=== PATIENT | male | born 1990 | race Caucasian/White ===

== ENCOUNTER 2020-02-17 16:14 | Emergency (ER) | payer SELFPAY ==
--- NOTE | 2020-02-17 16:52 | EDM.PDOC ---
ED HPI GENERAL MEDICAL PROBLEM - General Chief Complaint: General Stated Complaint: RIGHT WRIST PAIN Time Seen by Provider: 02/17/20 16:30 Source of Information: Reports: Patient History Limitations: Reports: No Limitations - History of Present Illness INITIAL COMMENTS - FREE TEXT/NARRATIVE: Patient presents emergency department with right elbow and wrist pain, he states upon awakening this morning the pain started in his right elbow, later this afternoon it moved into his right wrist. Pain worsens with range of motion inversion and eversion of his hand and wrist, making a fist, and palpation of his lateral epicondyle and lateral wrist. Patient denies any fever, chills, recent injury. Patient denies any medical history. Recent activities were thoroughly cleaning his house yesterday, this is not a usual activity for patient. Onset: Today Right Wrist Pain Score (Numeric/FACES): 4 - Related Data Allergies Allergy/AdvReac Type Severity Reaction Status Date / Time No Known Allergies Allergy Verified 05/15/14 11:43 Home Meds: Home Meds NK [No Known Home Meds] 05/15/14 [History] ED ROS GENERAL - Review of Systems Review Of Systems: Comprehensive ROS is negative, except as noted in HPI. ED EXAM, GENERAL - Physical Exam Exam: See Below Exam Limited By: No Limitations General Appearance: Alert, WD/WN, No Apparent Distress Respiratory/Chest: No Respiratory Distress, Normal Breath Sounds Cardiovascular: Normal Peripheral Pulses, Regular Rate, Rhythm Peripheral Pulses: 2+: Radial (L), Radial (R) Extremities: Other (Tender lateral wrist and tender lateral epicondyle on right upper extremity. Pain with range of motion of right wrist and inversion and eversion of hand. This pain is almost completely relieved with application of pressure to the lateral epicondyle.) Neurological: Alert, Oriented, CN II-XII Intact, Normal Cognition Psychiatric: Normal Affect, Normal Mood Skin Exam: Warm, Dry, Intact Course - Vital Signs Last Recorded V/S: Last Vital Signs Temp 96.4 F L 02/17/20 16:31 Pulse 101 H 02/17/20 16:31 Resp 18 02/17/20 16:31 BP 129/95 H 02/17/20 16:31 Pulse Ox 98 02/17/20 16:31 Departure - Departure Time of Disposition: 16:50 Disposition: Home, Self-Care 01 Clinical Impression: Tennis elbow - Discharge Information *PRESCRIPTION DRUG MONITORING PROGRAM REVIEWED*: Not Applicable *COPY OF PRESCRIPTION DRUG MONITORING REPORT IN PATIENT PAMELA: Not Applicable Instructions: Tennis Elbow, [id number] Referrals: PCP,None [Primary Care Provider] - Forms: ED Department Discharge Additional Instructions: Discharge home. Tylenol and Ibuprofen for pain, rest the arm and wrist. Keep pressure to tendons and ligaments at the elbow for a couple days to help reduce inflammation to arm/wrist. Try to use left hand when working. Sepsis Event Note (ED) - Evaluation Sepsis Screening Result: No Definite Risk - Focused Exam Vital Signs: Vital Signs Temp Pulse Resp BP Pulse Ox 02/17/20 16:31 96.4 F L 101 H 18 129/95 H 98 02/17/20 16:22 96.4 F L 101 H 18 129/95 H 98 - Problem List & Annotations (1) Tennis elbow SNOMED Code(s): 525868362 Code(s): M77.10 - LATERAL EPICONDYLITIS, UNSPECIFIED ELBOW Status: Acute Current Visit: Yes Qualifiers: Laterality: right Qualified Code(s): M77.11 - Lateral epicondylitis, right elbow - Problem List Review Problem List Initiated/Reviewed/Updated: Yes - Assessment/Plan Assessment:: Assessment: Tennis elbow Plan: Tylenol and ibuprofen OTC Apply pressure to lateral epicondyle with pressure bandage like an Zeb wrap with activities to prevent discomfort Rest right elbow as often as possible, apply ice and elevation as needed. Differentials considered were golfers elbow, bursitis, tennis elbow.
== END 2020-02-17 16:45 | disposition home or self-care (01) ==
LOC: LB.ED 16:14
DX: M77.11 Lateral epicondylitis, right elbow (principal)
CPT/HCPCS: 99282; 99283

== ENCOUNTER 2020-03-25 09:18 | Emergency (ER) | payer SELFPAY ==
[~2020-03-25 09:18] MED LIST: Aspirin 81 MG Tab.Chew PO ONE; Nitroglycerin 0.4 MG Tab.SL SL ONE
[2020-03-25] MEDS ORDERED: Ketorolac 30 MG/ML SDV IVPUSH PRN (09:51)
[2020-03-25] MEDS ORDERED: Ketorolac 30 MG/ML SDV ONE (10:02)
--- NOTE | 2020-03-25 10:22 | EDM.PDOC ---
ED HPI GENERAL MEDICAL PROBLEM - General Chief Complaint: Chest Pain Stated Complaint: chest pain Time Seen by Provider: 03/25/20 10:32 Source of Information: Reports: Patient History Limitations: Reports: No Limitations - History of Present Illness Onset: Today Duration: Hour(s): (sharp stabbing left sided chest pain, started ), Constant, Getting Worse Location: Reports: Chest Quality: Reports: Sharp, Stabbing Severity: Moderate Improves with: Reports: Rest Worsens with: Reports: Movement Context: Reports: Activity Associated Symptoms: Reports: No Other Symptoms. Denies: Cough, Diaphoresis Left Chest Pain Score (Numeric/FACES): 10 - Related Data Allergies Allergy/AdvReac Type Severity Reaction Status Date / Time No Known Allergies Allergy Verified 05/15/14 11:43 Home Meds: Home Meds NK [No Known Home Meds] 05/15/14 [History] Past Medical History - Past Health History Medical/Surgical History: Denies Medical/Surgical History Social & Family History - Family History Family Medical History: Noncontributory ED ROS GENERAL - Review of Systems Review Of Systems: See Below Constitutional: Reports: No Symptoms. Denies: Fever, Chills, Malaise, Weakness HEENT: Reports: No Symptoms Respiratory: Reports: Pleuritic Chest Pain. Denies: Shortness of Breath, Wheezing, Cough Cardiovascular: Reports: Chest Pain. Denies: Dyspnea on Exertion, Lightheadedness Endocrine: Reports: No Symptoms GI/Abdominal: Reports: No Symptoms : Reports: No Symptoms Musculoskeletal: Reports: Muscle Pain Skin: Reports: No Symptoms Neurological: Reports: No Symptoms Psychiatric: Reports: No Symptoms ED EXAM, GENERAL - Physical Exam Exam: See Below Free Text/Narrative:: Sharp stabbing reproducible chest wall pain Exam Limited By: No Limitations General Appearance: Alert, WD/WN, Anxious, Mild Distress Ears: Normal External Exam Nose: Normal Inspection Throat/Mouth: Normal Inspection Head: Atraumatic, Normocephalic Neck: Normal Inspection, Supple, Non-Tender, Full Range of Motion Respiratory/Chest: No Respiratory Distress, Lungs Clear, Normal Breath Sounds, No Accessory Muscle Use, Other (Left side lower rib tenderness lateral ribs). No: Respiratory Distress, Crackles, Rales, Rhonchi, Wheezing, Retractions, Splinting Cardiovascular: Normal Peripheral Pulses GI/Abdominal: Normal Bowel Sounds Back Exam: Normal Inspection, Full Range of Motion Extremities: Normal Inspection, Normal Range of Motion Course - Vital Signs Last Recorded V/S: Last Vital Signs Temp 98.3 F 03/25/20 09:29 Pulse 90 03/25/20 09:29 Resp 20 03/25/20 09:29 BP 130/90 03/25/20 09:29 Pulse Ox 98 03/25/20 09:29 - Orders/Labs/Meds Orders: Active Orders 24 hr Category Date Time Status Chest 2V [CR] Stat Exams 03/25/20 09:59 Taken Ketorolac [Toradol] Med 03/25/20 09:51 Active 30 mg IVPUSH Q6H PRN Medication Orders Ketorolac Tromethamine (Toradol) 30 mg IVPUSH Q6H PRN PRN Reason: Pain Stop: 03/30/20 09:51 Last Admin: 03/25/20 10:00 Dose: 30 mg Documented by: LATRICE Labs: Laboratory Tests 03/25/20 03/25/20 Range/Units 09:59 09:59 WBC 9.1 (4.0-11.0) K/uL RBC 5.33 (4.50-6.50) M/uL Hgb 15.1 (13.0-18.0) g/dL Hct 44.3 (40.0-54.0) % MCV 83 (76-96) fL MCH 28.3 (27.0-32.0) pg MCHC 34.1 (31.0-35.0) g/dL RDW 15.3 (11.0-16.0) % Plt Count 162 (150-400) K/uL MPV 11.7 H (6.0-10.0) fL Neut % (Auto) 71.7 H (45.0-70.0) % Lymph % (Auto) 20.6 (20.0-40.0) % Spencer % (Auto) 6.3 (3.0-10.0) % Eos % (Auto) 1.3 (1.0-5.0) % Baso % (Auto) 0.1 (0.0-0.5) % Neut # (Auto) 6.55 (2.00-7.50) K/uL Lymph # (Auto) 1.88 (1.50-4.00) K/uL Spencer # (Auto) 0.58 (0.20-0.80) K/uL Eos # (Auto) 0.12 (0.04-0.40) K/uL Baso # (Auto) 0.01 L (0.02-0.10) K/uL Sodium 140 (136-145) mmol/L Potassium 4.0 (3.5-5.1) mmol/L Chloride 105 (98-107) mmol/L Carbon Dioxide 25.3 (21.0-32.0) mmol/L Anion Gap 13.7 (5.0-15.0) mmol/L BUN 11 (8-26) mg/dL Creatinine 1.16 (0.70-1.30) mg/dL Est Cr Clr Drug Dosing TNP Estimated GFR (MDRD) > 60 (>60) MLS/MIN BUN/Creatinine Ratio 9.5 (6-25) Glucose 117 H (74-100) mg/dL Calcium 8.4 L (8.5-10.1) mg/dL Total Bilirubin 0.5 (0.0-1.0) mg/dL AST 23 (15-37) U/L ALT 36 (12-78) U/L Alkaline Phosphatase 75 (46-116) U/L Troponin I < 0.017 (0.000-0.060) ng/mL Total Protein 7.3 (6.4-8.2) g/dL Albumin 3.5 (3.4-5.0) g/dL Globulin 3.8 (2.2-4.2) g/dL Albumin/Globulin Ratio 0.9 (0.8-2.0) Meds: Medications Generic Name Dose Route Start Last Admin Trade Name Freq PRN Reason Stop Dose Admin Ketorolac Tromethamine 30 mg 03/25/20 09:51 03/25/20 10:00 Toradol IVPUSH 03/30/20 09:51 30 mg Q6H PRN Administration Pain Discontinued Medications Generic Name Dose Route Start Last Admin Trade Name Freq PRN Reason Stop Dose Admin Ketorolac Tromethamine Confirm 03/25/20 10:02 03/25/20 09:59 Toradol Administered 03/25/20 10:03 Not Given Dose 30 mg .ROUTE .STK-MED ONE - Re-Assessments/Exams Free Text/Narrative Re-Assessment/Exam: 03/25/20 10:26 Pt was given Toradol 30mg IM with moderate relief of sx. Pt given dx of costochondritis and advised to take NSAID for discomfort as needed. Free Text/Narrative Re-Assessment/Exam: 03/25/20 10:29 Pt discharged Departure - Departure Time of Disposition: 10:27 Disposition: Home, Self-Care 01 Condition: Good Clinical Impression: Costochondritis Instructions: Costochondritis, [id number], How to Use Cold Therapy Referrals: PCP,None [Primary Care Provider] - Forms: ED Department Discharge Additional Instructions: Use tyelenol or motrin as needed for the chest pain. Follow up as needed. Drink plenty of water. Sepsis Event Note (ED) - Evaluation Sepsis Screening Result: No Definite Risk - Focused Exam Vital Signs: Vital Signs Temp Pulse Resp BP Pulse Ox 03/25/20 09:29 98.3 F 90 20 130/90 98 - My Orders Last 24 Hours: My Active Orders 03/25/20 09:51 Ketorolac [Toradol] 30 mg IVPUSH Q6H PRN 03/25/20 09:59 Chest 2V [CR] Stat - Assessment/Plan Last 24 Hours: My Active Orders 03/25/20 09:51 Ketorolac [Toradol] 30 mg IVPUSH Q6H PRN 03/25/20 09:59 Chest 2V [CR] Stat
--- NOTE | 2020-03-25 10:35 | CR ---
DATE OF SERVICE: 03/25/20 CLINICAL DATA: chest pain AP CHEST: No priors. The heart size is normal. The lungs are clear. No pneumothorax. No pleural effusions. No evidence of acute intrathoracic disease. [id number] MTDD
== END 2020-03-25 10:28 | disposition home or self-care (01) ==
LOC: LB.ED 09:18
DX: M94.0 Chondrocostal junction syndrome [Tietze] (principal)
CPT/HCPCS: 36415; 71046; 80053; 84484; 85025; 93005; 96374; 99285; A9270; J1885

== ENCOUNTER 2020-05-14 07:38 | Emergency (ER) | payer SELFPAY ==
[2020-05-14] MEDS ORDERED: Ketorolac 60 MG/2 ML SDV IM ONE (08:58)
[2020-05-14] MEDS ORDERED: Albuterol 8 GM Inhaler INH ONE (08:58)
[2020-05-14] MEDS ORDERED: Azithromycin 250 MG Tab ONE (09:30)
--- NOTE | 2020-05-14 09:43 | CR ---
DATE OF SERVICE: 05/14/20 CLINICAL DATA: shortness of breath PA AND LATERAL CHEST: Comparison is made to a prior exam dated 03/25/20. The heart size is normal. The lungs are clear. No pneumothorax. No pleural effusions. No evidence of acute intrathoracic disease. [id number] [facility]
--- NOTE | 2020-05-14 09:44 | EDM.PDOC ---
ED HPI GENERAL MEDICAL PROBLEM - General Chief Complaint: Respiratory Problem Stated Complaint: COUGH / SOB Time Seen by Provider: 05/14/20 08:30 Source of Information: Reports: Patient History Limitations: Reports: No Limitations - History of Present Illness INITIAL COMMENTS - FREE TEXT/NARRATIVE: Patient is a 30 y/o male who presents for SOB and cough x 1 day. No exposure to anyone else that is sick. Associated body aches and generalized headache. - Related Data Allergies Allergy/AdvReac Type Severity Reaction Status Date / Time No Known Allergies Allergy Verified 05/14/20 08:02 Home Meds: Home Meds NK [No Known Home Meds] 05/15/14 [History] Past Medical History - Past Health History Medical/Surgical History: Denies Medical/Surgical History Cardiovascular History: Reports: Other (See Below) Other Cardiovascular History: chostochonritis Respiratory History: Reports: Other (See Below) Other Respiratory History: Bronchitis Gastrointestinal History: Reports: GERD Musculoskeletal History: Reports: Other (See Below) Other Musculoskeletal History: knee surgery Psychiatric History: Reports: Bipolar, Depression Social & Family History - Family History Family Medical History: Noncontributory - Tobacco Use Tobacco Use Status *Q: Current Every Day Tobacco User Years of Tobacco use: 21 Packs/Tins Daily: 1 - Alcohol Use Days Per Week of Alcohol Use: 3 Number of Drinks Per Day: 1 Total Drinks Per Week: 3 - Recreational Drug Use Recreational Drug Use: Yes Recreational Drug Type: Reports: Marijuana/Hashish Recreational Drug Use Frequency: Daily ED ROS GENERAL - Review of Systems Review Of Systems: See Below Constitutional: Reports: No Symptoms HEENT: Reports: No Symptoms Respiratory: Reports: Shortness of Breath, Cough Cardiovascular: Reports: No Symptoms GI/Abdominal: Reports: No Symptoms : Reports: No Symptoms Musculoskeletal: Reports: Other (body aches) Skin: Reports: No Symptoms Neurological: Reports: No Symptoms, Headache Psychiatric: Reports: No Symptoms ED EXAM, GENERAL - Physical Exam Exam: See Below Free Text/Narrative:: Patient found smoking in his car and doesn't look to be in respiratory distress Exam Limited By: No Limitations General Appearance: Alert, No Apparent Distress Head: Atraumatic, Normocephalic Neck: Normal Inspection, Supple, Non-Tender, Full Range of Motion Respiratory/Chest: No Respiratory Distress, Lungs Clear, Normal Breath Sounds, No Accessory Muscle Use, Chest Non-Tender Cardiovascular: Normal Peripheral Pulses, Regular Rate, Rhythm, No Murmur Neurological: Alert, Oriented, CN II-XII Intact, Normal Cognition, Normal Gait, No Motor/Sensory Deficits Psychiatric: Normal Affect, Normal Mood Skin Exam: Warm, Dry, Intact, Normal Color, No Rash Lymphatic: No Adenopathy Course - Vital Signs Last Recorded V/S: Last Vital Signs Temp 36.1 C 05/14/20 08:25 Pulse 80 05/14/20 08:25 Resp 20 05/14/20 08:25 BP 133/91 H 05/14/20 09:32 Pulse Ox 100 05/14/20 08:25 toradol given. Patient given Z-nora and medrol nora to take as directed with food. Patient wanting 2 days off from work. - Orders/Labs/Meds Orders: Active Orders 24 hr Category Date Time Status RT Post Treatment Assessment [RC] Click to Edit Care 05/14/20 08:59 Active Isolation [COMM] Routine Oth 05/14/20 08:58 Active Labs: Laboratory Tests 05/14/20 Range/Units 07:54 SARS CoV-2 RNA Rapid LO Negative Meds: Medications Discontinued Medications Generic Name Dose Route Start Last Admin Trade Name Freq PRN Reason Stop Dose Admin Albuterol 2 gm 05/14/20 08:58 05/14/20 09:14 Ventolin Hfa INH 05/14/20 08:59 8 gram ONETIME ONE Administration Ketorolac Tromethamine 60 mg 05/14/20 08:58 05/14/20 09:06 Toradol IM 05/14/20 08:59 60 mg ONETIME ONE Administration Departure - Departure Time of Disposition: 09:30 Disposition: Home, Self-Care 01 Condition: Good Clinical Impression: Upper respiratory infection Qualifiers: URI type: unspecified URI Qualified Code(s): J06.9 - Acute upper respiratory infection, unspecified - Discharge Information *PRESCRIPTION DRUG MONITORING PROGRAM REVIEWED*: Not Applicable *COPY OF PRESCRIPTION DRUG MONITORING REPORT IN PATIENT PAMELA: Not Applicable Instructions: Upper Respiratory Infection, Pediatric, [id number], Upper Respiratory Infection, Adult, [id number] Referrals: PCP,None [Primary Care Provider] - Forms: ED Department Discharge Care Plan Goals: take Z pack as directed with food off work x 2 days Sepsis Event Note (ED) - Evaluation Sepsis Screening Result: No Definite Risk - Focused Exam Vital Signs: Vital Signs Temp Pulse Resp BP Pulse Ox 05/14/20 09:32 133/91 H 05/14/20 08:25 36.1 C 80 20 147/100 H 100 05/14/20 08:23 36.1 C 80 20 147/100 H 100 - My Orders Last 24 Hours: My Active Orders 05/14/20 08:58 Isolation [COMM] Routine 05/14/20 08:59 RT Post Treatment Assessment [RC] Click to Edit - Assessment/Plan Last 24 Hours: My Active Orders 05/14/20 08:58 Isolation [COMM] Routine 05/14/20 08:59 RT Post Treatment Assessment [RC] Click to Edit
== END 2020-05-14 09:46 | disposition home or self-care (01) ==
LOC: LB.ED 07:38
DX: J06.9 Acute upper respiratory infection, unspecified (principal); F17.210 Nicotine dependence, cigarettes, uncomplicated; Z20.828 Contact with and (suspected) exposure to other viral communicable diseases
CPT/HCPCS: 71046; 87804; 87804-59; 96372; 99283; 99285-25; A9270-GY; J1885; U0002

== ENCOUNTER 2020-06-24 17:13 | Emergency (ER) | payer SELFPAY ==
--- NOTE | 2020-06-24 17:37 | EDM.PDOC ---
ED HPI GENERAL MEDICAL PROBLEM - General Chief Complaint: Chest Pain Stated Complaint: chest pain Time Seen by Provider: 06/24/20 17:20 Source of Information: Reports: Patient History Limitations: Reports: No Limitations, Intoxication (marijuana) - History of Present Illness INITIAL COMMENTS - FREE TEXT/NARRATIVE: pt states onset of chest pain and shortness of breath about 1630 today with one episode of vomiting, he states all nausea has subsided enroute. pt denies cardiac history, pulmonary history. smoking est 15packyear history. denies fever, chills, cough. Onset: Today, Sudden - Related Data Allergies Allergy/AdvReac Type Severity Reaction Status Date / Time No Known Allergies Allergy Verified 06/24/20 18:22 Home Meds: Home Meds NK [No Known Home Meds] 05/15/14 [History] Past Medical History - Past Health History Medical/Surgical History: Denies Medical/Surgical History Cardiovascular History: Reports: Other (See Below) Other Cardiovascular History: chostochonritis Respiratory History: Reports: Other (See Below) Other Respiratory History: Bronchitis Gastrointestinal History: Reports: GERD Musculoskeletal History: Reports: Other (See Below) Other Musculoskeletal History: knee surgery Psychiatric History: Reports: Bipolar, Depression Social & Family History - Family History Family Medical History: No Pertinent Family History ED ROS GENERAL - Review of Systems Review Of Systems: Comprehensive ROS is negative, except as noted in HPI. ED EXAM, GENERAL - Physical Exam Exam: See Below Exam Limited By: No Limitations General Appearance: Alert, WD/WN, No Apparent Distress Nose: Normal Inspection, Normal Mucosa Throat/Mouth: Normal Inspection, Normal Lips, Normal Teeth, Normal Oropharynx Respiratory/Chest: No Respiratory Distress, Lungs Clear, No Accessory Muscle Use, Chest Non-Tender Cardiovascular: Normal Peripheral Pulses Peripheral Pulses: 2+: Radial (L), Radial (R), Posterior Tibial (L), Posterior Tibial (R) Neurological: Alert, Oriented, CN II-XII Intact Skin Exam: Warm, Dry, Intact #1 Interpretation EKG Date: 06/24/20 Rhythm: NSR (sinus tachy) [place]: Normal P-Wave: Present ST-T: Normal QT: Normal Comparison: No Change (compared to march 2020) EKG Interpretation Comments: no peaked t waves, q waves, delta waves noted. Course - Orders/Labs/Meds Orders: Active Orders 24 hr Category Date Time Status Chest 1V Frontal [CR] Stat Exams 06/24/20 17:24 Ordered CBC WITH AUTO DIFF [HEME] Stat Lab 06/24/20 17:24 Ordered COMPREHENSIVE METABOLIC PN,CMP [CHEM] Stat Lab 06/24/20 17:24 Ordered CORONAVIRUS COVID-19 RAPID [MOLEC] Stat Lab 06/24/20 17:17 Ordered DRUG SCREEN, URINE [URCHEM] Stat Lab 06/24/20 17:25 Ordered TROPONIN I [CHEM] Stat Lab 06/24/20 17:24 Ordered - Radiology Interpretation Free Text/Narrative:: wet read: no noted pneumothorax, consolodation, infiltrates, cardiomegaly. - Re-Assessments/Exams Free Text/Narrative Re-Assessment/Exam: 06/24/20 18:30 follow up PE pt SOB and chest tightness symptoms markedly improved after albuterol neb. no change to lung sounds. Departure - Departure Time of Disposition: 18:46 Disposition: Home, Self-Care 01 Condition: Good Clinical Impression: Reactive airway disease with acute exacerbation - Discharge Information *PRESCRIPTION DRUG MONITORING PROGRAM REVIEWED*: Not Applicable *COPY OF PRESCRIPTION DRUG MONITORING REPORT IN PATIENT PAMELA: Not Applicable - Problem List & Annotations (1) Reactive airway disease with acute exacerbation SNOMED Code(s): 809586920082 Code(s): J45.901 - UNSPECIFIED ASTHMA WITH (ACUTE) EXACERBATION Status: Acute - Problem List Review Problem List Initiated/Reviewed/Updated: No - My Orders Last 24 Hours: My Active Orders 06/24/20 17:17 CORONAVIRUS COVID-19 RAPID [MOLEC] Stat 06/24/20 17:24 Chest 1V Frontal [CR] Stat CBC WITH AUTO DIFF [HEME] Stat COMPREHENSIVE METABOLIC PN,CMP [CHEM] Stat TROPONIN I [CHEM] Stat 06/24/20 17:25 DRUG SCREEN, URINE [URCHEM] Stat - Assessment/Plan Last 24 Hours: My Active Orders 06/24/20 17:17 CORONAVIRUS COVID-19 RAPID [MOLEC] Stat 06/24/20 17:24 Chest 1V Frontal [CR] Stat CBC WITH AUTO DIFF [HEME] Stat COMPREHENSIVE METABOLIC PN,CMP [CHEM] Stat TROPONIN I [CHEM] Stat 06/24/20 17:25 DRUG SCREEN, URINE [URCHEM] Stat Assessment:: assessment: reactive airway disease plan: albuterol INH q4h prn for SOB and chest tightness follow up in clinic in 1-2 weeks for recheck and more tests: methacholine challenge, stress test, echocardiogram differentials considered were [place], PNA, pneumothorax, asthma.
[2020-06-24] MEDS ORDERED: Albuterol 8 GM Inhaler INH ONE (18:00)
[2020-06-24] MEDS ORDERED: Albuterol 8 GM Inhaler INH PRN (18:22)
[2020-06-24] MEDS ORDERED: Albuterol 0.083% 2.5 MG/3 ML Neb Soln NEB ONE (18:25)
--- NOTE | 2020-06-25 10:06 | CR ---
DATE OF SERVICE: 06/24/20 CLINICAL DATA: chest pain FRONTAL VIEW OF THE CHEST: No priors. The heart size is normal. The lungs are clear. No pneumothorax. No pleural effusions. No evidence of acute intrathoracic disease. [id number] MTDD
== END 2020-06-24 18:45 | disposition home or self-care (01) ==
LOC: LB.ED 17:13
DX: J45.901 Unspecified asthma with (acute) exacerbation (principal); Z20.828 Contact with and (suspected) exposure to other viral communicable diseases
CPT/HCPCS: 36415; 71045; 80053; 80307; 84484; 85025; 87635; 99285; A9270; U0002

== ENCOUNTER 2020-07-15 05:48 | Emergency (ER) | payer SELFPAY ==
[2020-07-15] MEDS: Aspirin 81 MG Tab.Chew PO ONE (05:57)
[2020-07-15] MEDS: Ketorolac 30 MG/ML SDV IM ONE (06:34)
--- NOTE | 2020-07-15 06:42 | EDM.PDOC ---
ED HPI GENERAL MEDICAL PROBLEM - General Chief Complaint: Chest Pain Stated Complaint: Chest Pain Time Seen by Provider: 07/15/20 06:20 Source of Information: Reports: Patient History Limitations: Reports: No Limitations - History of Present Illness INITIAL COMMENTS - FREE TEXT/NARRATIVE: Patient is a 30 y/o male who presents for left-sided chest pain that started at 0500 this morning. He describes it as sharp, constant, and non-radiating. No fever, no cough, and no shortness of breath. He has been in the ER before for chest pain that was diagnosis as chest wall pain and reactive airway. No history of cardiopulmonary disease. Middle Chest Pain Score (Numeric/FACES): 8 - Related Data Allergies Allergy/AdvReac Type Severity Reaction Status Date / Time No Known Allergies Allergy Verified 06/24/20 18:22 Home Meds: Home Meds NK [No Known Home Meds] 05/15/14 [History] Past Medical History - Past Health History Medical/Surgical History: Denies Medical/Surgical History Cardiovascular History: Reports: Other (See Below) Other Cardiovascular History: chostochonritis Respiratory History: Reports: Other (See Below) Other Respiratory History: Bronchitis Gastrointestinal History: Reports: GERD Musculoskeletal History: Reports: Other (See Below) Other Musculoskeletal History: knee surgery Psychiatric History: Reports: Anxiety, Bipolar, Depression Social & Family History - Family History Family Medical History: No Pertinent Family History - Tobacco Use Tobacco Use Status *Q: Current Every Day Tobacco User Years of Tobacco use: 15 Packs/Tins Daily: 1 - Caffeine Use Caffeine Use: Reports: Soda - Alcohol Use Number of Drinks Per Day: 1 - Recreational Drug Use Recreational Drug Use: Yes Recreational Drug Type: Reports: Marijuana/Hashish Recreational Drug Use Frequency: Daily ED ROS GENERAL - Review of Systems Review Of Systems: See Below Constitutional: Reports: No Symptoms HEENT: Reports: No Symptoms Respiratory: Reports: No Symptoms Cardiovascular: Reports: Chest Pain GI/Abdominal: Reports: No Symptoms Musculoskeletal: Reports: No Symptoms Skin: Reports: No Symptoms Neurological: Reports: No Symptoms Psychiatric: Reports: No Symptoms ED EXAM, GENERAL - Physical Exam Exam: See Below Exam Limited By: No Limitations General Appearance: Alert, No Apparent Distress Head: Atraumatic, Normocephalic Neck: Normal Inspection, Supple Respiratory/Chest: No Respiratory Distress, Lungs Clear, Normal Breath Sounds, No Accessory Muscle Use, Other (left chest wall tenderness with palpation ) Cardiovascular: Normal Peripheral Pulses, No Edema, No Murmur, Other (irregularly irregular) Peripheral Pulses: 2+: Radial (L), Radial (R) GI/Abdominal: Normal Bowel Sounds, Soft, Non-Tender, No Distention Back Exam: Normal Inspection Neurological: Alert, Oriented, CN II-XII Intact, Normal Cognition, Normal Gait, No Motor/Sensory Deficits Psychiatric: Normal Affect, Normal Mood Skin Exam: Warm, Dry, Intact, Normal Color, No Rash #1 Interpretation EKG Date: 07/15/20 Time: 05:51 Rhythm: A-Fib (with RVR) Rate (Beats/Min): 110 [place]: Normal P-Wave: Absent QRS: Normal ST-T: Normal QT: Normal Comparison: Change From Previous EKG #2 Interpretation EKG Date: 07/15/20 Time: 06:47 Rhythm: A-Fib Rate (Beats/Min): 91 [place]: Normal P-Wave: Absent QRS: Normal ST-T: Normal QT: Normal Course - Vital Signs Text/Narrative:: Aspirin, toradol, and labetolol ordered. CXR unremarkable and unchanged from previous (06/21). Pending labs. Patient's heart rate was originally in the 130s, but resolved to a rate in the 80s. Hold labetolol. Eliquis 5 mg PO ordered. All labs unremarkable. Patient feels better and explained to him about AFIB. Daily eliquis and we will hold off on any rate controlled medication at this time. copies of EKGs given to patient to give to cardiology tomorrow at his apt. Eliquis prescription given and explained to patient that it is important to take daily starting tomorrow to prevent stroke or PE. Last Recorded V/S: Last Vital Signs Temp 35.9 C L 07/15/20 05:51 Pulse 95 07/15/20 07:01 Resp 15 07/15/20 07:01 BP 136/95 H 07/15/20 07:01 Pulse Ox 96 07/15/20 07:01 - Orders/Labs/Meds Orders: Active Orders 24 hr Category Date Time Status EKG Documentation Completion [RC] ASDIRECTED Care 07/15/20 06:28 Active Chest 1V Frontal [CR] Stat Exams 12/14/20 06:10 Taken EKG 12 Lead [EK] Stat Ther 07/15/20 06:28 Ordered Labs: Laboratory Tests 07/15/20 07/15/20 07/15/20 Range/Units 06:20 06:20 06:20 WBC 8.0 D (4.0-11.0) K/uL RBC 5.33 (4.50-6.50) M/uL Hgb 15.4 (13.0-18.0) g/dL Hct 43.6 (40.0-54.0) % MCV 82 (76-96) fL MCH 28.9 (27.0-32.0) pg MCHC 35.3 H (31.0-35.0) g/dL RDW 14.8 (11.0-16.0) % Plt Count 151 (150-400) K/uL MPV 11.4 H (6.0-10.0) fL Neut % (Auto) 59.5 (45.0-70.0) % Lymph % (Auto) 31.7 (20.0-40.0) % [place] % (Auto) 7.4 (3.0-10.0) % Eos % (Auto) 1.0 (1.0-5.0) % Baso % (Auto) 0.4 (0.0-0.5) % Neut # (Auto) 4.77 (2.00-7.50) K/uL Lymph # (Auto) 2.54 (1.50-4.00) K/uL [place] # (Auto) 0.59 (0.20-0.80) K/uL Eos # (Auto) 0.08 (0.04-0.40) K/uL Baso # (Auto) 0.03 (0.02-0.10) K/uL D-Dimer, Quantitative < 100 (0-400) ng/mL Sodium 141 (136-145) mmol/L Potassium 3.9 (3.5-5.1) mmol/L Chloride 105 (98-107) mmol/L Carbon Dioxide 22.7 (21.0-32.0) mmol/L Anion Gap 17.2 H (5.0-15.0) mmol/L BUN 15 D (8-26) mg/dL Creatinine 1.17 (0.70-1.30) mg/dL Est Cr Clr Drug Dosing 91.48 mL/min Estimated GFR (MDRD) > 60 (>60) MLS/MIN BUN/Creatinine Ratio 12.8 (6-25) Glucose 118 H (74-100) mg/dL Calcium 8.5 (8.5-10.1) mg/dL Total Bilirubin 0.3 D (0.0-1.0) mg/dL AST 12 L (15-37) U/L ALT 40 (12-78) U/L Alkaline Phosphatase 69 (46-116) U/L Troponin I < 0.017 (0.000-0.060) ng/mL Total Protein 7.1 (6.4-8.2) g/dL Albumin 3.5 (3.4-5.0) g/dL Globulin 3.6 (2.2-4.2) g/dL Albumin/Globulin Ratio 1.0 (0.8-2.0) Meds: Medications Discontinued Medications Generic Name Dose Route Start Last Admin Trade Name Freq PRN Reason Stop Dose Admin Apixaban 5 mg 07/15/20 06:49 07/15/20 06:57 Eliquis PO 07/15/20 06:50 5 mg ONETIME ONE Administration Aspirin 324 mg 07/15/20 06:01 07/15/20 05:57 Aspirin PO 07/15/20 06:02 324 mg ONETIME ONE Administration Ketorolac Tromethamine Confirm 07/15/20 06:43 07/15/20 06:53 Toradol Administered 07/15/20 06:44 Not Given Dose 30 mg .ROUTE .STK-MED ONE Ketorolac Tromethamine 30 mg 07/15/20 06:34 Toradol IM 07/15/20 06:35 ONETIME ONE Ketorolac Tromethamine 30 mg 07/15/20 06:38 07/15/20 06:47 Toradol IVPUSH 07/15/20 06:39 30 mg ONETIME ONE Administration Labetalol HCl 10 mg 07/15/20 06:34 07/15/20 06:54 Normodyne IVPUSH 07/15/20 06:35 Not Given ONETIME ONE Protocol Departure - Departure Time of Disposition: 07:30 Disposition: Home, Self-Care 01 Condition: Good Clinical Impression: Chest wall pain Afib Qualifiers: Atrial fibrillation type: unspecified Qualified Code(s): I48.91 - Unspecified atrial fibrillation Instructions: Nonspecific Chest Pain, Adult, Atrial Fibrillation, [id number] Referrals: PCP,None [Primary Care Provider] - Forms: ED Department Discharge Additional Instructions: Take Eliquis 5 mg PO daily starting tomorrow (07/16). Follow up with cardiology as scheduled Wednesday. Toradol given in the ED for chest wall pain. Can take tylenol as directed for pain. Can take motrin as directed for chest wall pain starting tomorrow (07/16). Sepsis Event Note (ED) - Evaluation Sepsis Screening Result: No Definite Risk - Focused Exam Vital Signs: Vital Signs Temp Pulse Resp BP Pulse Ox 07/15/20 07:01 95 15 136/95 H 96 07/15/20 06:45 96 16 132/92 H 97 07/15/20 06:16 110 H 14 119/83 98 07/15/20 06:00 94 117/88 07/15/20 05:51 35.9 C L 117 H 20 124/87 100 07/15/20 05:50 35.9 C L 117 H 22 H 124/87 100 - My Orders Last 24 Hours: My Active Orders 07/15/20 06:10 Chest 1V Frontal [CR] Stat 07/15/20 06:28 EKG Documentation Completion [RC] ASDIRECTED EKG 12 Lead [EK] Stat - Assessment/Plan Last 24 Hours: My Active Orders 07/15/20 06:10 Chest 1V Frontal [CR] Stat 07/15/20 06:28 EKG Documentation Completion [RC] ASDIRECTED EKG 12 Lead [EK] Stat
[2020-07-15] MEDS: Ketorolac 60 MG/2 ML SDV IVPUSH ONE (06:47)
[2020-07-15] MEDS: Ketorolac 30 MG/ML SDV ONE (06:53)
[2020-07-15] MEDS: Labetalol 100 MG/20 ML MDV IVPUSH ONE (06:54)
[2020-07-15] MEDS: Apixaban 5 MG Tab PO ONE (06:57)
--- NOTE | 2020-07-15 08:43 | CR ---
Date of Service: 07/15/20 Clinical Data: chest pain AP CHEST: Comparison is made to a prior exam dated 06/24/20. The heart size is normal. There are increased markings in the perihilar regions bilaterally with peribronchial cuffing suggesting bronchitis/pneumonitis. The lungs are clear. No pneumothorax. No pleural effusions. No area of consolidation. No other significant findings. [id number] [facility]
== END 2020-07-15 07:25 | disposition home or self-care (01) ==
LOC: LB.ED 05:48
DX: I48.91 Unspecified atrial fibrillation (principal); F17.210 Nicotine dependence, cigarettes, uncomplicated
CPT/HCPCS: 36415; 71045; 80053; 84484; 85025; 85379; 93005; 96374; 99285-25; A9270-GY; J1885; J3490

== ENCOUNTER 2020-10-23 14:54 | Emergency (ER) | payer MEDICAID ==
[2020-10-23] MEDS: Nitroglycerin 2% Oint 30 GM Tube TOP ONE (15:00)
--- NOTE | 2020-10-23 16:39 | CR ---
DATE OF SERVICE: 10/23/2020 CLINICAL DATA: Chest pain. AP PORTABLE CHEST: Comparison made to a prior exam dated 07/15/2020. The heart size is normal. The lungs are clear. No changes from the prior study. No evidence of acute intrathoracic disease. [id number] [facility]
--- NOTE | 2020-10-23 21:37 | ER ---
HISTORY OF PRESENT ILLNESS: A 30-year-old male who comes in by private car with complaints of episodes of dizziness, lightheadedness, occasional chest tightness. He states that this has been going on for 9 or 10 months. Nothing is really new, but he thought that he should be checked out. He called his letter of credit clerk who is Dr. England from [place] and was told to come in also for evaluation. The patient tells me that he has had trouble with his heart. He has been told he has something called HCM and 2 different kinds of COPD. He tells me that he was told that he is going to have a couple of cardiac stents put in, in a couple of months. He is not sure why the delay. The patient denies any coughing, shortness of breath, or wheezing. He tells me he is not currently working and has not been working for almost a year. He tells me that he takes 2 inhalers and omeprazole for gastritis. The patient tells me that today he feels like he just has a little chest pressure, it is not really pain, and it does not stop him from doing any activities that he normally would do. OBJECTIVE: GENERAL APPEARANCE: The patient is awake and alert. No respiratory distress. VITAL SIGNS: Reviewed. He is afebrile, pulse 79, blood pressure 122/82, respirations 16, O2 sats 96% on room air. HEENT: Oral mucous membranes moist. Tonsils not enlarged or injected. Pharynx not inflamed. NECK: Supple. LUNGS: Clear. CARDIAC: Heart sounds distinct. S1, S2 present. Regular rate. No murmurs. ABDOMEN: Soft, nontender. SKIN: Warm and dry. INITIAL TREATMENT: We applied nitroglycerin paste to the patient's anterior chest wall and within a few minutes, he stated that his chest pressure seemed to be a little better. EKG was obtained showing a normal sinus rhythm with a ventricular rate in the low 80s. LABORATORY DATA: Labs include a CBC, CMP, and troponin they are all normal. Chest x-ray is unremarkable. DIAGNOSIS: Chest tightness with episodes of dizziness and lightheadedness. This does not appear to be cardiac at this point. TREATMENT PLAN: I questioned the patient about anxiety and he states he does feel he is anxious some of the time. He has never been evaluated for this. I advised the patient to go home and rest, assured that his heart workup is good today and I want him to follow up with his primary care provider whom he tells me is Mary Bryan in [place]. I feel he needs to have an evaluation for anxiety as well. The patient agrees with the treatment plan and has no further questions. JESICA/IHSAN /[id number]
== END 2020-10-23 16:40 | disposition home or self-care (01) ==
LOC: LB.ED 14:54
DX: R07.89 Other chest pain (principal); R42 Dizziness and giddiness; Z79.899 Other long term (current) drug therapy
CPT/HCPCS: 36415; 71045; 80053; 84484; 85025; 93005; 99283; 99285-25; A9270-GY

== ENCOUNTER 2020-11-15 18:42 | Emergency (ER) | payer MEDICAID ==
--- NOTE | 2020-11-15 19:01 | EDM.PDOC ---
ED HPI GENERAL MEDICAL PROBLEM - General Chief Complaint: General Stated Complaint: confusion Time Seen by Provider: 11/15/20 19:10 Source of Information: Reports: Patient, RN History Limitations: Reports: Other (lethargic) - History of Present Illness INITIAL COMMENTS - FREE TEXT/NARRATIVE: Mr. Meyer is a 30 YOM here for chest pain with confusion. He has been seen here recently for the same issue. Medical history is unclear but he told the last provider he saw at 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 Last visit increasing episodes of anxiety was suspected and he was told to FU with primary care. Today he is a poor historian of the events leading up to this episode. Today he has normal HRR, lungs are CTA, abd is soft. No guarding. No fever or chest congestion or cough. No rash. He has not taken anything for his symptoms. Hx of GERD, Bipolar. He uses marijuana. Onset: Gradual Onset Date: 11/15/20 (Has been seen recently for same episode) Onset Time: 16:00 Duration: Hour(s):, Constant Location: Reports: Head, Chest Severity: Moderate Improves with: Reports: None Worsens with: Reports: None Associated Symptoms: Reports: Confusion Chest Pain Score (Numeric/FACES): 4 - Related Data Allergies Allergy/AdvReac Type Severity Reaction Status Date / Time No Known Allergies Allergy Verified 11/15/20 18:55 Home Meds: Home Meds Omeprazole 20 mg PO DAILY 11/15/20 [History] Past Medical History - Past Health History Medical/Surgical History: Denies Medical/Surgical History Cardiovascular History: Reports: Other (See Below) Other Cardiovascular History: chostochonritis Respiratory History: Reports: Other (See Below) Other Respiratory History: Bronchitis Gastrointestinal History: Reports: GERD Musculoskeletal History: Reports: Other (See Below) Other Musculoskeletal History: knee surgery Psychiatric History: Reports: Anxiety, Bipolar, Depression Social & Family History - Family History Family Medical History: No Pertinent Family History - Caffeine Use Caffeine Use: Reports: Soda ED ROS GENERAL - Review of Systems Review Of Systems: See Below Constitutional: Reports: No Symptoms HEENT: Reports: No Symptoms Respiratory: Reports: No Symptoms Cardiovascular: Reports: Chest Pain Endocrine: Reports: No Symptoms GI/Abdominal: Reports: No Symptoms : Reports: No Symptoms Musculoskeletal: Reports: No Symptoms Skin: Reports: No Symptoms Neurological: Reports: Confusion Psychiatric: Reports: Anxiety, Confusion Hematologic/Lymphatic: Reports: No Symptoms Immunologic: Reports: No Symptoms ED EXAM, GENERAL - Physical Exam Exam: See Below Exam Limited By: No Limitations Eye Exam: Bilateral Eye: PERRL Ears: Normal External Exam Nose: Normal Inspection, Normal Mucosa Throat/Mouth: Normal Inspection, Normal Lips, Other (poor dentition extensive decay upper front ) Head: Atraumatic, Normocephalic Neck: Normal Inspection, Supple, Non-Tender Respiratory/Chest: No Respiratory Distress, Lungs Clear, Normal Breath Sounds Cardiovascular: Normal Peripheral Pulses, Regular Rate, Rhythm, No Edema GI/Abdominal: Normal Bowel Sounds, Soft, Non-Tender (Male) Exam: Deferred Rectal (Males) Exam: Deferred Back Exam: Normal Inspection Extremities: Normal Inspection, Normal Range of Motion Neurological: Alert, Oriented, CN II-XII Intact Psychiatric: Depressed Mood, Flat Affect Skin Exam: Warm, Dry, Intact Lymphatic: No Adenopathy #1 Interpretation EKG Date: 11/15/20 Rhythm: NSR Rate (Beats/Min): 70 [place]: Normal QRS: Normal ST-T: Normal QT: Normal Comparison: NA - No Prior EKG EKG Interpretation Comments: Normal sinus rhythm EKG, reported sinus arrhythmia not documented in every lead. Normal rate. Course - Vital Signs Last Recorded V/S: Last Vital Signs Temp 36.8 C 11/15/20 19:26 Pulse 63 11/15/20 19:30 Resp 19 11/15/20 19:30 BP 135/88 11/15/20 19:30 Pulse Ox 100 11/15/20 19:26 - Orders/Labs/Meds Orders: Active Orders 24 hr Category Date Time Status Chest w Cont [CT] Stat Exams 11/15/20 19:04 Taken CORONAVIRUS COVID-19 RAPID [MOLEC] Stat Lab 11/15/20 20:47 Ordered Labs: Laboratory Tests 11/15/20 11/15/20 11/15/20 Range/Units 19:24 19:24 19:24 WBC 6.8 (4.0-11.0) K/uL RBC 5.34 (4.50-6.50) M/uL Hgb 14.6 (13.0-18.0) g/dL Hct 43.4 (40.0-54.0) % MCV 81 (76-96) fL MCH 27.3 (27.0-32.0) pg MCHC 33.6 (31.0-35.0) g/dL RDW 14.9 (11.0-16.0) % Plt Count 156 (150-400) K/uL MPV 11.3 H (6.0-10.0) fL Neut % (Auto) 61.5 (45.0-70.0) % Lymph % (Auto) 29.8 (20.0-40.0) % [place] % (Auto) 7.4 (3.0-10.0) % Eos % (Auto) 1.2 (1.0-5.0) % Baso % (Auto) 0.1 (0.0-0.5) % Neut # (Auto) 4.15 (2.00-7.50) K/uL Lymph # (Auto) 2.01 (1.50-4.00) K/uL [place] # (Auto) 0.50 (0.20-0.80) K/uL Eos # (Auto) 0.08 (0.04-0.40) K/uL Baso # (Auto) 0.01 L (0.02-0.10) K/uL Sodium 144 (136-145) mmol/L Potassium 3.9 (3.5-5.1) mmol/L Chloride 106 (98-107) mmol/L Carbon Dioxide 26.2 (21.0-32.0) mmol/L Anion Gap 15.7 H (5.0-15.0) mmol/L BUN 8 (8-26) mg/dL Creatinine 1.21 (0.70-1.30) mg/dL Est Cr Clr Drug Dosing 85.58 mL/min Estimated GFR (MDRD) > 60 (>60) MLS/MIN BUN/Creatinine Ratio 6.6 (6-25) Glucose 99 (74-100) mg/dL Calcium 9.0 (8.5-10.1) mg/dL Total Bilirubin 0.5 (0.0-1.0) mg/dL AST 19 (15-37) U/L ALT 37 (12-78) U/L Alkaline Phosphatase 83 (46-116) U/L Troponin I < 0.017 (0.000-0.060) ng/mL B-Natriuretic Peptide 13 (0-125) pg/mL Total Protein 7.3 (6.4-8.2) g/dL Albumin 3.7 (3.4-5.0) g/dL Globulin 3.6 (2.2-4.2) g/dL Albumin/Globulin Ratio 1.0 (0.8-2.0) Urine Opiates Screen (NEGATIVE) Ur Oxycodone Screen (NEGATIVE) Urine Methadone Screen (NEGATIVE) Ur Barbiturates Screen (NEGATIVE) Ur Tricyclics Screen (NEGATIVE) Ur Phencyclidine Scrn (NEGATIVE) Ur Amphetamine Screen (NEGATIVE) U Methamphetamines Scrn (NEGATIVE) Urine MDMA Screen (NEGATIVE) U Benzodiazepines Scrn (NEGATIVE) U Cocaine Metab Screen (NEGATIVE) U Marijuana (THC) Screen (NEGATIVE) SARS CoV-2 RNA Rapid LO 11/15/20 11/15/20 Range/Units 20:11 20:45 WBC (4.0-11.0) K/uL RBC (4.50-6.50) M/uL Hgb (13.0-18.0) g/dL Hct (40.0-54.0) % MCV (76-96) fL MCH (27.0-32.0) pg MCHC (31.0-35.0) g/dL RDW (11.0-16.0) % Plt Count (150-400) K/uL MPV (6.0-10.0) fL Neut % (Auto) (45.0-70.0) % Lymph % (Auto) (20.0-40.0) % [place] % (Auto) (3.0-10.0) % Eos % (Auto) (1.0-5.0) % Baso % (Auto) (0.0-0.5) % Neut # (Auto) (2.00-7.50) K/uL Lymph # (Auto) (1.50-4.00) K/uL [place] # (Auto) (0.20-0.80) K/uL Eos # (Auto) (0.04-0.40) K/uL Baso # (Auto) (0.02-0.10) K/uL Sodium (136-145) mmol/L Potassium (3.5-5.1) mmol/L Chloride (98-107) mmol/L Carbon Dioxide (21.0-32.0) mmol/L Anion Gap (5.0-15.0) mmol/L BUN (8-26) mg/dL Creatinine (0.70-1.30) mg/dL Est Cr Clr Drug Dosing mL/min Estimated GFR (MDRD) (>60) MLS/MIN BUN/Creatinine Ratio (6-25) Glucose (74-100) mg/dL Calcium (8.5-10.1) mg/dL Total Bilirubin (0.0-1.0) mg/dL AST (15-37) U/L ALT (12-78) U/L Alkaline Phosphatase (46-116) U/L Troponin I (0.000-0.060) ng/mL B-Natriuretic Peptide (0-125) pg/mL Total Protein (6.4-8.2) g/dL Albumin (3.4-5.0) g/dL Globulin (2.2-4.2) g/dL Albumin/Globulin Ratio (0.8-2.0) Urine Opiates Screen Positive H (NEGATIVE) Ur Oxycodone Screen Negative (NEGATIVE) Urine Methadone Screen Negative (NEGATIVE) Ur Barbiturates Screen Negative (NEGATIVE) Ur Tricyclics Screen Negative (NEGATIVE) Ur Phencyclidine Scrn Negative (NEGATIVE) Ur Amphetamine Screen Negative (NEGATIVE) U Methamphetamines Scrn Negative (NEGATIVE) Urine MDMA Screen Negative (NEGATIVE) U Benzodiazepines Scrn Negative (NEGATIVE) U Cocaine Metab Screen Negative (NEGATIVE) U Marijuana (THC) Screen Positive H (NEGATIVE) SARS CoV-2 RNA Rapid LO Negative Meds: Medications Discontinued Medications Generic Name Dose Route Start Last Admin Trade Name Freq PRN Reason Stop Dose Admin Hydroxyzine HCl 50 mg 11/15/20 19:05 11/15/20 19:28 Hydroxyzine Hcl 25 Mg Tab PO 11/15/20 19:06 50 mg ONETIME ONE Administration Iopamidol 100 ml 11/15/20 19:45 11/15/20 20:07 Iopamidol 612 Mg/Ml 100 Ml Bottle IV 100 ml . DIRECTED TRISTAN Administration Morphine Sulfate 1 mg 11/15/20 19:01 11/15/20 20:15 Morphine 2 Mg/Ml Syringe IM 11/15/20 19:02 Not Given ONETIME ONE Morphine Sulfate 1 mg 11/15/20 19:39 11/15/20 19:24 Morphine 2 Mg/Ml Syringe IVPUSH 11/15/20 19:40 1 mg ONETIME ONE Administration Sodium Chloride 50 ml 11/15/20 19:37 11/15/20 20:07 Sodium Chloride 0.9% 50 Ml Sdv FLUSH 11/15/20 19:38 50 ml ONETIME ONE Administration Departure - Departure Time of Disposition: 20:50 Disposition: Home, Self-Care 01 Condition: Good Clinical Impression: Acute anxiety, Bipolar 1 disorder, depressed - Discharge Information *PRESCRIPTION DRUG MONITORING PROGRAM REVIEWED*: No *COPY OF PRESCRIPTION DRUG MONITORING REPORT IN PATIENT PAMELA: No (ust follow up with PCP to manage Bipolar disorder, anxiety and depression. FU with Cardiology as needed for HCM. Return to ED or PCP for worsening symptoms.) Forms: ED Department Discharge Additional Instructions: Must follow up with PCP to manage Bipolar disorder, anxiety and depression. FU with Cardiology as needed for HCM. Return to ED or PCP for worsening symptoms. - My Orders Last 24 Hours: My Active Orders 11/15/20 19:04 Chest w Cont [CT] Stat 11/15/20 20:47 CORONAVIRUS COVID-19 RAPID [MOLEC] Stat - Assessment/Plan Last 24 Hours: My Active Orders 11/15/20 19:04 Chest w Cont [CT] Stat 11/15/20 20:47 CORONAVIRUS COVID-19 RAPID [MOLEC] Stat Assessment:: Anxiety possibly induced by underlying Bipolar disorder. Plan: Must follow up with PCP to manage Bipolar disorder, anxiety and depression. FU with Cardiology as needed for HCM. Return to ED or PCP for worsening symptoms.
[2020-11-15] MEDS ORDERED: hydrOXYzine HCl 25 MG Tab PO ONE (19:05)
[2020-11-15] MEDS: Morphine 2 MG/ML SYRINGE IM ONE ×2 (19:24→20:15)
[2020-11-15] MEDS ORDERED: Sodium Chloride 0.9% 50 ML SDV FLUSH ONE (19:37)
[2020-11-15] MEDS ORDERED: Morphine 2 MG/ML SYRINGE IVPUSH ONE (19:39)
[2020-11-15] MEDS ORDERED: Iopamidol 612 MG/ML 100 ML Bottle IV SCH (19:45)
--- NOTE | 2020-11-17 10:21 | CT ---
Date of Service: 11/15/20 Clinical Data: chest pain ENHANCED CHEST CT: Multislice acquisition through the chest with IV contrast was performed. Comparison is made to a prior exam dated 05/23/20. No evidence of PE. No pneumothorax. No pleural effusions. No aortic aneurysm or dissection. There are mild atelectatic changes in the dependent portion of both lungs and in both lung bases. There are mild emphysematous changes in both lungs. There are also subtle hazy ground-glass opacities in both lungs. Respiratory bronchiolitis should be considered. No areas of consolidation. The heart size is normal. No pericardial effusion. No hilar or mediastinal adenopathy. There is a small hiatal hernia. No other significant findings. [id number] [facility]
== END 2020-11-15 20:55 | disposition home or self-care (01) ==
LOC: LB.ED 18:42
DX: F31.9 Bipolar disorder, unspecified (principal); F41.8 Other specified anxiety disorders; K21.9 Gastro-esophageal reflux disease without esophagitis; Z20.822 Contact with and (suspected) exposure to COVID-19; Z79.899 Other long term (current) drug therapy
CPT/HCPCS: 36415; 71260; 80053; 80307; 83880; 84484; 85025; 93005; 96374; 99285-25; A9270-GY; J2270; Q9967; U0002